=== PATIENT | female | born 1995 | race Caucasian/White ===

== ENCOUNTER 2019-05-18 13:26 | Emergency (ER) | payer OTHER, MEDICAID, SELFPAY ==
[2019-05-18 13:33] VITALS: BP 115/72; PULSE 89; RESP 20; TEMP 36.7; O2SAT 97; BMI 24.3
[2019-05-18] MEDS: HYDROCODONE/ACET 5/325 TABLET 1 TAB PO (14:06)
[2019-05-18] MEDS: KETOROLAC 60 MG/2 ML VIAL 30 MG IM (14:06)
[2019-05-18] MEDS: LIDOCAINE PATCH 1 EACH ADH..PATCH TOP (14:06)
--- NOTE | 2019-05-18 15:21 | ED_ITS ---
HPI - Back Pain/Injury <CASEY Alvarado-BC - Last Filed: 05/18/19 16:41> General Chief Complaint: Back Pain/Injury Stated Complaint: Back spasm/R shoulder extreme pain/lightheaded Time Seen by Provider: 05/18/19 13:29 Source: patient and family Mode of arrival: ambulatory Limitations: no limitations History of Present Illness HPI Narrative: The patient is a 23-year-old female current smoker who is 7.5 months who presents with a chief complaint of right shoulder pain. She states she was bending over to do laundry, and she felt sudden pain next to her right shoulder blade. She states it is a muscle spasm. This happened at approximately 8:30 a.m. this morning. She tried Tylenol, which did not help. She is concerned as she is . She denies any falls or trauma. She states the pain was severe and she felt very ?seized up.She denies any numbness or tingling. Related Data Previous Rx's Medication Instructions Recorded diclofenac sodium [Voltaren] 2 gram TOP QID PRN 14 Days #100 05/18/19 gram hydrocodone-acetaminophen 1 tab PO Q4-6H PRN #7 tab 05/18/19 lidocaine 1 patch TOP DAILY #15 each 05/18/19 Allergies Allergy/AdvReac Type Severity Reaction Status Date / Time penicillin V Allergy Intermediate RASH Verified 05/18/19 14:24 SWELLING Review of Systems <KAYLEIGH Alvarado - Last Filed: 05/18/19 16:41> Review of Systems Narrative: GENERAL: Denies chills, fatigue, malaise, fever, sweats. HEENT: Denies sinus pain, ear pain, sore throat, difficulty swallowing, dizziness. RESPIRATORY: Denies dyspnea, cough, wheezing, hemoptysis, sputum. CARDIOVASCULAR: Denies chest pain, palpitations, orthopnea, edema, GASTROINTESTINAL: Denies nausea, vomiting, abdominal pain, diarrhea, constipation, melena. : Denies dysuria, frequency, incontinence, hematuria, urinary retention. MUSCULOSKELETAL: See HPI SKIN: Denies rash, skin lesions, or other NEUROLOGIC: Denies weakness, headache, numbness, change in speech, confusion, seizures, incoordination. PSYCHIATRIC: No concerning psychosocial issues. 12 point review of systems is negative except for those stated above PFSH <PATTIE Alvarado - Last Filed: 05/18/19 16:41> Social History Smoking Status: Never smoker Social History Smoking Status: Never smoker Exam <PATTIE Alvarado - Last Filed: 05/18/19 16:41> Narrative Exam Narrative: GENERAL: This is a well-nourished, well-developed patient, appears uncomfortable HEAD: Atraumatic. Normocephalic. No temporal or scalp tenderness. EYES: Pupils equal round and reactive. Extraocular motions intact. No scleral icterus. No injection or drainage. ENT: Nose without bleeding, purulent drainage or septal hematoma. Throat without erythema, tonsillar hypertrophy or exudate. Uvula midline. Airway patent. NECK: Trachea midline. No JVD or lymphadenopathy. Supple, nontender, no meningeal signs. CARDIOVASCULAR: Regular rate and rhythm without murmurs, gallops, or rubs. RESPIRATORY: Clear to auscultation. Breath sounds equal bilaterally. No wheezes, rales, or rhonchi. No cough. No increased respiratory effort. No accessory muscle use. GASTROINTESTINAL: Abdomen soft, non-tender, nondistended. No hepato- splenomegaly, or palpable masses. No guarding. Active bowel sounds. EXTREMITIES: No clubbing, cyanosis, or edema. No joint tenderness, effusion, or edema noted. Pain to palpation medial to right scapula. Full range of motion noted right shoulder. Positive radial pulse right hand. BACK: Nontender without deformity or crepitance. No flank tenderness. NEURO: AOx3. SKIN: No rash or erythema. No erythema ecchymosis laceration or abrasion noted over back. Initial Vital Signs Initial Vital Signs: Vital Signs Temperature 98.0 F 05/18/19 13:33 Pulse Rate 89 05/18/19 13:33 Respiratory Rate 20 05/18/19 13:33 Blood Pressure 115/72 05/18/19 13:33 Pulse Oximetry 97 05/18/19 13:33 <Juan Moody DO - Last Filed: 05/18/19 17:06> Initial Vital Signs Initial Vital Signs: Vital Signs Temperature 98.0 F 05/18/19 13:33 Pulse Rate 89 05/18/19 13:33 Respiratory Rate 20 05/18/19 13:33 Blood Pressure 115/72 05/18/19 13:33 Pulse Oximetry 97 05/18/19 13:33 Course <VIELKA AlvaradoP-BC - Last Filed: 05/18/19 16:41> Orders Ordered: Discontinued Medications Hydrocodone Bitart/Acetaminophen ([place] 5/325) 1 tab PO NOW ONE Stop: 05/18/19 13:59 Last Admin: 05/18/19 14:06 Dose: 1 tab Documented by: TUCKER Ketorolac Tromethamine (Toradol) 30 mg IM NOW ONE Stop: 05/18/19 13:59 Last Admin: 05/18/19 14:06 Dose: 30 mg Documented by: TUCKER Lidocaine (Lidoderm) 1 each TOP NOW ONE Stop: 05/18/19 13:50 Last Admin: 05/18/19 14:06 Dose: 1 each Documented by: TUCKER Vital Signs Vital signs: Vital Signs - 8 hr 05/18/19 13:33 05/18/19 15:23 Temperature 98.0 F Pulse Rate 89 53 L Respiratory Rate 20 15 Blood Pressure 115/72 Blood Pressure [Right Arm] 112/70 Pulse Oximetry 97 100 <Juan Moody DO - Last Filed: 05/18/19 17:06> Orders Ordered: Discontinued Medications Hydrocodone Bitart/Acetaminophen ([place] 5/325) 1 tab PO NOW ONE Stop: 05/18/19 13:59 Last Admin: 05/18/19 14:06 Dose: 1 tab Documented by: TUCKER Ketorolac Tromethamine (Toradol) 30 mg IM NOW ONE Stop: 05/18/19 13:59 Last Admin: 05/18/19 14:06 Dose: 30 mg Documented by: JOANAE Lidocaine (Lidoderm) 1 each TOP NOW ONE Stop: 05/18/19 13:50 Last Admin: 05/18/19 14:06 Dose: 1 each Documented by: TUCKER Vital Signs Vital signs: Vital Signs - 8 hr 05/18/19 13:33 05/18/19 15:23 Temperature 98.0 F Pulse Rate 89 53 L Respiratory Rate 20 15 Blood Pressure 115/72 Blood Pressure [Right Arm] 112/70 Pulse Oximetry 97 100 MDM - Back Pain/Injury <Shira BassCASEY-BC - Last Filed: 05/18/19 16:41> Lab Data Labs: Point of Care Testing Test Results Negative Urine Dip Bedside Urine Glucose Negative Bedside Urine Bilirubin - Negative Bedside Urine Ketone - Negative Urine Specific [place] 1.010 Bedside Urine Occult Blood - Negative Bedside Urine pH 7.0 Bedside Urine Protein - Negative Bedside Urine Urobilinogen - Negative Bedside Urine Nitrite - Negative Bedside Urine Leukocytes - Negative Esterase [facility] Narrative Medical decision making narrative: The patient is a 23-year-old female who presents with a chief complaint of right shoulder and back pain. She declines any imaging today. She is nontoxic appearing, neurologically intact. She was given lidocaine patch, Gar[place] and Toradol in the emergency department. Muscle relaxers were held due to . She felt much improved after these medications. I discussed at length that [place] can be constipating and sedating, use the smallest dose for as well as prescription of topical Voltaren and lidocaine patch. Encouraged follow-up with PCP. Discussed coming back to the ER for any acute concerns. Patient has been hemodynamically stable throughout her stay in the emergency department. No questions or concerns upon discharge. <Juan Moody DO - Last Filed: 05/18/19 17:06> Lab Data Labs: Point of Care Testing Test Results Negative Urine Dip Bedside Urine Glucose Negative Bedside Urine Bilirubin - Negative Bedside Urine Ketone - Negative Urine Specific [place] 1.010 Bedside Urine Occult Blood - Negative Bedside Urine pH 7.0 Bedside Urine Protein - Negative Bedside Urine Urobilinogen - Negative Bedside Urine Nitrite - Negative Bedside Urine Leukocytes - Negative Esterase Discharge Plan Departure Patient Disposition: Home Clinical Impression: Muscle spasm Discharge Date/Time: 05/18/19 15:56 Instructions: DI for Back Spasm, DI for Muscle Spasm Activity Restrictions/Additional Instructions: I have given you several medications to help with muscle spasm. Please follow up with primary care provider. Be aware that the hydrocodone can be constipating and sedating. The lidocaine patches are available in a slightly decreased strength over-the-co unter. Please come back to the emergency department for any acute concerns. Prescriptions: New hydrocodone-acetaminophen 5-325 mg tablet 1 tab PO Q4-6H PRN (Reason: pain) Qty: 7 RF: 0 lidocaine 5 % adhesive patch,medicated 1 patch TOP DAILY Qty: 15 RF: 0 diclofenac sodium [Voltaren] 1 % gel 2 gram TOP QID PRN (Reason: pain, moderate) 14 Days Qty: 100 RF: 0 Referrals: [facility] [Outside] <Juan Moody, - Last Filed: 05/18/19 17:06> Sign Out Provider Sign Out Attestation: I was available for consultation during this patient's emergency department encounter
[2019-05-18 15:23] VITALS: BP 112/70; PULSE 53; RESP 15; O2SAT 100
== END 2019-05-18 15:56 | disposition home or self-care (01) ==
PROVIDERS: Emergency Provider Nurse Practitioner Family
DX: M62.838 Other muscle spasm (principal)
CPT/HCPCS: 81003; 81025; 96372; 99282; 99283; J1885

== ENCOUNTER → 2019-06-11 09:21 | Outpatient (CLI) | payer OTHER, MEDICAID, SELFPAY ==
[2019-06-11 09:56] LABS: Hematocrit 39.8 % (36-46); Hemoglobin 13.2 g/dL (12.0-16.0); Mean Corpuscular Hemoglobin 29.7 PG (26-34); Mean Corpuscular Volume 89.8 fL (80-100); Platelet Count 202 X10^3/uL (150-400); Red Blood Cell Count 4.43 X10^6/uL (4.0-5.2); Red Cell Distribution Width 13.4 % (11.6-14.8); White Blood Cell Count 6.3 X10^3/uL (4.5-11.0)
[2019-06-11 10:17] LABS: Alanine Aminotransferase 7 IU/L (9-52); Albumin 4.6 g/dL (3.5-5.0); Albumin Globulin Ratio 1.5 (1.0-2.8); Alkaline Phosphatase 80 U/L (38-126); Aspartate Aminotransferase 22 IU/L (14-36); BUN Creatinine Ratio 26.7 (6-22); Blood Urea Nitrogen 16 mg/dL (7-17); Calcium 9.5 mg/dL (8.4-10.2); Carbon Dioxide 28 mmol/L (22-32); Chloride 104 mmol/L (98-107); Estimated Glomerular Filt Rate > 60.0 mL/min (>60); Glucose 81 mg/dL (70-100); HEMOLYSIS < 15 (0-50); Potassium 4.3 mmol/L (3.4-5.1); Sodium 141 mmol/L (137-145); Total Protein 7.6 g/dL (6.3-8.2)
[2019-06-11 10:45] LABS: TSH w/ Reflex to FT4 0.49 uIU/mL (0.47-4.68)
== END ==
PROVIDERS: Visit Provider Nurse Practitioner Family
DX: Z00.00 Encounter for general adult medical examination without abnormal findings (principal); R53.83 Other fatigue
CPT/HCPCS: 36415; 80053; 84443; 85027

== ENCOUNTER → 2019-10-15 14:00 | Outpatient (CLI) | payer OTHER, MEDICAID, SELFPAY ==
--- NOTE | 2019-10-15 14:03 | DI.RAD.S_ITS ---
PROCEDURE: XR HAND RT MIN 3V INDICATIONS: right hand pain TECHNIQUE: 3 views of the hand(s) acquired. COMPARISON: [facility], , HAND 2V RIGHT, 01/25/2015, 18:08. FINDINGS: Bones: No fractures or dislocations. Carpal bones are normally aligned. No suspicious bony lesions. Soft tissues: No suspicious soft tissue calcifications. IMPRESSION: Negative examination. If the patient's pain or other symptoms persist, consider further evaluation with MRI Dictated by: Jefe Devries M.D. on 10/15/2019 at 16:04 Approved by: Jefe Devries M.D. on 10/15/2019 at 16:06
== END ==
PROVIDERS: PCP Nurse Practitioner Family; Visit Provider Nurse Practitioner Family
DX: M79.641 Pain in right hand (principal)
CPT/HCPCS: 73130

== ENCOUNTER → 2020-07-15 12:08 | Outpatient (CLI) | payer OTHER, MEDICAID, SELFPAY ==
[2020-07-15 13:12] LABS: Hematocrit 39.8 % (36-46); Hemoglobin 12.8 g/dL (12.0-16.0); Mean Corpuscular HGB Conc 32.2 % (30-36); Mean Corpuscular Hemoglobin 29.6 PG (26-34); Mean Corpuscular Volume 91.8 fL (80-100); Platelet Count 189 X10^3/uL (150-400); Red Blood Cell Count 4.34 X10^6/uL (4.0-5.2); Red Cell Distribution Width 13.4 % (11.6-14.8); White Blood Cell Count 6.5 X10^3/uL (4.5-11.0)
[2020-07-15 14:05] LABS: Alanine Aminotransferase 15 IU/L (<35); Albumin 4.4 g/dL (3.5-5.0); Albumin Globulin Ratio 1.7 (1.0-2.8); Alkaline Phosphatase 55 U/L (38-126); Aspartate Aminotransferase 25 IU/L (14-36); BUN Creatinine Ratio 21.7 (6-22); Bilirubin Total 1.2 mg/dL (0.2-1.3); Blood Urea Nitrogen 15 mg/dL (7-17); Calcium 9.1 mg/dL (8.4-10.2); Carbon Dioxide 29 mmol/L (22-32); Chloride 102 mmol/L (98-107); Estimated Glomerular Filt Rate > 60.0 mL/min (>60); Globulin 2.6 g/dL (1.7-4.1); Glucose 115 mg/dL (70-100); HEMOLYSIS < 15 (0-50); Potassium 4.2 mmol/L (3.4-5.1); Sodium 138 mmol/L (137-145)
== END ==
PROVIDERS: PCP Nurse Practitioner Family; Referring Provider Nurse Practitioner Family; Visit Provider Nurse Practitioner Family
DX: Z00.00 Encounter for general adult medical examination without abnormal findings (principal)
CPT/HCPCS: 36415; 80053; 85027

== ENCOUNTER → 2020-07-16 09:07 | Outpatient (CLI) | payer OTHER, MEDICAID, SELFPAY | PROVIDERS: PCP Nurse Practitioner Family; Visit Provider Nurse Practitioner Family | DX: R73.9 Hyperglycemia, unspecified (principal) | CPT/HCPCS: 83036 ==

== ENCOUNTER → 2021-04-22 10:09 | Outpatient (CLI) | payer OTHER, MEDICAID, SELFPAY ==
--- NOTE | 2021-04-22 10:13 | DI.RAD.S_ITS ---
PROCEDURE: XR FOOT LT MIN 3V INDICATIONS: foot pain after kicking dresser TECHNIQUE: 3 views of the foot were acquired. COMPARISON: None. FINDINGS: Bones: No acute fractures or dislocations. No suspicious bony lesions. Soft tissues: No suspicious soft tissue calcification. IMPRESSION: No acute osseous abnormality. If clinical suspicion and/or symptoms persist, additional imaging with repeat plain films, or advanced imaging (e.g. CT, MRI) may be helpful for further assessment. Dictated by: Romulo Canchola M.D. on 04/22/2021 at 10:55 Approved by: Romulo Canchola M.D. on 04/22/2021 at 10:56
== END ==
PROVIDERS: PCP Nurse Practitioner Family; Referring Provider Nurse Practitioner Family; Visit Provider Nurse Practitioner Family
DX: M79.672 Pain in left foot (principal)
CPT/HCPCS: 73630

== ENCOUNTER → 2021-10-07 08:54 | Outpatient (CLI) | payer OTHER, MEDICAID, SELFPAY ==
[2021-10-07 09:47] LABS: Add Manual Diff / Slide Review NO; Basophils Absolute Auto 0 /uL (0-100); Basophils Percent Auto 0.5 % (0-2); Eosinophils Absolute Auto 400 /uL (0-450); Eosinophils Percent Auto 4.8 % (2-4); Hemoglobin 13.5 g/dL (12.0-16.0); Lymphocytes Absolute Auto 1900 /uL (1100-4500); Lymphocytes Percent Auto 25.7 % (25-40); Mean Corpuscular HGB Conc 33.8 % (30-36); Mean Corpuscular Hemoglobin 30.7 PG (26-34); Mean Corpuscular Volume 90.9 fL (80-100); Monocytes Absolute Auto 600 /uL (0-900); Neutrophils Absolute Auto 4600 /uL (1500-7000); Platelet Count 218 X10^3/uL (150-400); Red Blood Cell Count 4.41 X10^6/uL (4.0-5.2); Red Cell Distribution Width 13.3 % (11.6-14.8); White Blood Cell Count 7.6 X10^3/uL (4.5-11.0)
[2021-10-07 10:26] LABS: Alanine Aminotransferase 17 IU/L (<35); Albumin 4.5 g/dL (3.5-5.0); Albumin Globulin Ratio 1.7 (1.0-2.8); Alkaline Phosphatase 45 U/L (38-126); Aspartate Aminotransferase 24 IU/L (14-36); BUN Creatinine Ratio 23.4 (6-22); Bilirubin Total 0.4 mg/dL (0.2-1.3); Blood Urea Nitrogen 15 mg/dL (7-17); Calcium 9.6 mg/dL (8.4-10.2); Carbon Dioxide 29 mmol/L (22-32); Chloride 106 mmol/L (98-107); Estimated Glomerular Filt Rate > 60.0 mL/min (>60); Globulin 2.7 g/dL (1.7-4.1); Glucose 83 mg/dL (70-100); HEMOLYSIS < 15 (0-50); Sodium 141 mmol/L (137-145); Total Protein 7.2 g/dL (6.3-8.2)
[2021-10-09 17:09] LABS: ANA Screen, IFA Positive (.)
[2021-10-11 13:58] LABS: Albumin 4.1 g/dL (2.9-4.4); Alpha-1-Globulin 0.2 g/dL (0.0-0.4); Alpha-2-Globulin 0.6 g/dL (0.4-1.0); Globulin Total 2.7 g/dL (2.2-3.9); Protein, Total 6.8 g/dL (6.0-8.5)
== END ==
PROVIDERS: PCP Nurse Practitioner Family; Referring Provider Registered Nurse Diabetes Educator; Visit Provider Registered Nurse Diabetes Educator
DX: Z00.00 Encounter for general adult medical examination without abnormal findings (principal); T69.1XXA Chilblains, initial encounter
CPT/HCPCS: 36415; 80053; 84155; 84165; 85025; 86038